=== PATIENT | female | born 1995 | race Caucasian/White ===

== ENCOUNTER 2016-12-04 13:50 | Emergency (ER) | payer BC ==
[2016-12-04 14:48] VITALS: BP 110/67
--- NOTE | 2016-12-04 14:57 | UC ---
Respiratory Complaint HPI - History of Current Complaint Chief Complaint: UCGeneralIllness Stated Complaint: RESPIRATORY COMPLAINT Time Seen by Provider: 12/04/16 14:49 Hx Obtained From: Patient Hx Last Menstrual Period: None with BC ?: No Onset/Duration: Sudden Onset, Lasting Days - 2, Worse Since - today Timing: Constant Severity Initially: Mild Severity Currently: Moderate Character: Cough: Productive - green sputum Aggravating Factors: Deep Breaths Alleviating Factors: Bronchodilator Associated Signs And Symptoms: Positive: Fever, Chills, Wheezing, URI, Nasal Congestion Related History: Seasonal Allergies - Risk Factors Pulmonary Embolism Risk Factors: Oral Contraceptives Cardiac Risk Factors: Negative Pseudomonas Risk Factors: Negative Tuberculosis Risk Factors: Negative - Allergies/Home Medications Allergies/Adverse Reactions: Allergies Allergy/AdvReac Type Severity Reaction Status Date / Time No Known Allergies Allergy Verified 12/04/16 14:35 Home Medications: Home Medications Albuterol 2.5MG/3ML (0.083%)* [Ventolin 2.5 MG/3 ML NEB.VALERIA*] 3 ml NEB PRN 12/04 [History] Fluticasone-Salmeterol 100-50* [Advair Diskus 100-50*] 2 puff INH DAILY [History Confirmed 12/04/16] Montelukast Sodium TAB* [Singulair 5 mg TAB*] 1 tab PO DAILY 12/04/16 [History Confirmed 12/04/16] PMH/Surg Hx/FS Hx/Imm Hx Endocrine History Of: Denies: Diabetes, Thyroid Disease, Hyperthyroidism, Hypothyroidism, Dyslipidemia Cardiovascular History Of: Denies: Cardiac Disorders, Hypertension, Pacemaker/ICD, Myocardial Infarction , Congestive Heart Failure, Atrial Fibrillation, Deep Vein Thrombosis, Bleeding Disorders Respiratory History Of: Reports: Asthma Denies: COPD, Bronchitis, Pneumonia, Pulmonary Embolism GI/ History Of: Denies: Gastroesophageal Reflux, Ulcer, Gastrointestinal Bleed, Gall Bladder Disease, Kidney Stones, Diverticulitis, Renal Disease, Urosepsis Neurological History Of: Denies: TIA, CVA, Dementia, Seizures, Migraine Psychological History Of: Denies: Anxiety, Depression, Bipolar Disorder, Schizophrenia, Post Traumatic Stress Disorder Cancer History Of: Denies: Lung Cancer, Colorectal Cancer, Breast Cancer, Prostate Cancer, Cervical Cancer Other History Of: Negative For: HIV, Hepatitis B, Hepatitis C, Anticoagulant Therapy - Surgical History Surgical History: Yes Surgery Procedure, Year, and Place: HIP SX TIMES TWO- BOTH HIPS - Family History Known Family History: Positive: Cardiac Disease, Hypertension - Social History Occupation: Student Lives: Alone Alcohol Use: None Substance Use Type: None Smoking Status (MU): Never Smoked Tobacco - Immunization History Most Recent Influenza Vaccination: 04/2016 Review of Systems Constitutional: Chills ENT: Sore Throat, Nasal Discharge Respiratory: Cough Gastrointestinal: Vomiting - none since last monday All Other Systems Reviewed And Are Negative: Yes Physical Exam Triage Information Reviewed: Yes Appearance: No Pain Distress, Well-Nourished, Ill-Appearing Vital Signs: Initial Vital Signs Temp 99.8 F 12/04/16 14:40 Pulse 100 12/04/16 14:40 Resp 18 12/04/16 14:40 BP 110/67 12/04/16 14:40 Pulse Ox 97 12/04/16 14:40 Vital Signs Reviewed: Yes Eyes: Positive: Conjunctiva Clear ENT: Positive: Pharynx normal, TMs normal Neck exam: Normal Respiratory: Positive: Wheezing - expiratory with coughing Cardiovascular Exam: Normal Musculoskeletal Exam: Normal Neurological Exam: Normal Psychological Exam: Normal Skin Exam: Normal UC Diagnostic Evaluation - Laboratory O2 Sat by Pulse Oximetry: 97 Respiratory Course/Dx - Differential Dx/Diagnosis Differential Diagnosis/HQI/PQRI: Asthma, Lower Resp Infection, Sinusitis Provider Diagnoses: Acute URI. Acute bronchospasm Discharge - Discharge Plan Condition: Stable Disposition: HOME Prescriptions: predniSONE TAB* [Deltasone TAB*] 20 mg PO DAILY #18 tab Patient Education Materials: Upper Respiratory Infection (ED), Bronchospasm (ED ), Prednisone (By mouth) Additional Instructions: NASAL SPRAYS AND DROPS: Afrin in the PUMP/ MIST bottle. Tilt your head down and look at the floor while doing a strong sniff with the spray. Decongestant nasal sprays and drops often give dramatic relief from congestion. They are often recommended for patients with sinus infection to assist with sinus drainage. Persons with high blood pressure should consult the doctor before using these nasal sprays. Afrin and Michael-Synephrine are common [id number] preparations. They should not be used for more than five days, as "rebound" congestion can occur - - the congestion flares as the drug wears off. A way of dealing with this rebound congestion problem is to medicate only one nostril each time, allowing the other nostril to recover from the medicine' s effects. When you no longer need the drug during the day, spray only one nostril each night. This helps you sleep well without severe rebound congestion. Call the doctor if you develop severe headache, palpitations, or chest pain.
== END 2016-12-04 15:19 | disposition home or self-care (01) ==
LOC: UCCORT 13:50
DX: J06.9 Acute upper respiratory infection, unspecified (principal); J98.01 Acute bronchospasm
CPT/HCPCS: 99212; G0463

== ENCOUNTER 2017-10-13 11:30 | Emergency (ER) | payer BC | END 2017-10-13 13:21 | disposition left against medical advice (07) | LOC: UCCORT 11:30 | DX: J00 Acute nasopharyngitis [common cold] (principal); Z53.21 Procedure and treatment not carried out due to patient leaving prior to being seen by health care provider ==

== ENCOUNTER 2017-10-13 19:11 | Emergency (ER) | payer BC ==
[2017-10-13 19:27] VITALS: BP 128/77
--- NOTE | 2017-10-13 19:58 | UC ---
Throat Pain/Nasal Fred HPI - HPI Summary HPI Summary: P tc/o sore throat ~ 1 week ago. Pt c/o of sore throat when she swallows. Had fever 1 week ago but has resolved. - History of Current Complaint Chief Complaint: UCRespiratory Stated Complaint: SORE THROAT, COLD SYM Time Seen by Provider: 10/13/17 19:20 Hx Obtained From: Patient Hx Last Menstrual Period: 6 yrs ?: No Onset/Duration: Sudden Onset, Lasting Days, Still Present Severity: Mild Associated Signs & Symptoms: Positive: Dysphagia - Allergies/Home Medications Allergies/Adverse Reactions: Allergies Allergy/AdvReac Type Severity Reaction Status Date / Time No Known Allergies Allergy Verified 10/13/17 19:27 PMH/Surg Hx/FS Hx/Imm Hx Previously Healthy: Yes Other History Of: Negative For: HIV, Hepatitis B, Hepatitis C, Anticoagulant Therapy - Surgical History Surgical History: Yes Surgery Procedure, Year, and Place: HIP SX B/L HIPS - Family History Known Family History: Positive: Cardiac Disease, Hypertension - Social History Occupation: Student Lives: Dormitory/Roommates Alcohol Use: Rare Substance Use Type: None Smoking Status (MU): Never Smoked Tobacco Have You Smoked in the Last Year: No - Immunization History Most Recent Influenza Vaccination: 04/2016 Review of Systems Constitutional: Fever, Fatigue Skin: Negative Eyes: Negative ENT: Sore Throat Respiratory: Cough Cardiovascular: Negative Gastrointestinal: Negative Genitourinary: Negative Motor: Negative Neurovascular: Negative Musculoskeletal: Myalgia Neurological: Headache Psychological: Negative Is Patient Immunocompromised?: No All Other Systems Reviewed And Are Negative: Yes Physical Exam Triage Information Reviewed: Yes Appearance: Ill-Appearing Vital Signs: Initial Vital Signs Temp 97.9 F 10/13/17 19:21 Pulse 83 10/13/17 19:21 Resp 18 10/13/17 19:21 BP 128/77 10/13/17 19:21 Pulse Ox 99 10/13/17 19:21 Vital Signs Reviewed: Yes Eye Exam: Normal ENT Exam: Other ENT: Positive: Pharyngeal erythema Dental Exam: Normal Neck exam: Normal Respiratory Exam: Normal Cardiovascular Exam: Normal Musculoskeletal Exam: Normal Neurological Exam: Normal Psychological Exam: Normal Skin Exam: Normal Throat Pain/Nasal Course/Dx - Differential Dx/Diagnosis Differential Diagnosis/HQI/PQRI: Pharyngitis, Tonsillitis, URI Provider Diagnoses: Strep throat. positive rapid strep Discharge - Discharge Plan Condition: Stable Disposition: HOME Prescriptions: Penicillin VK 500 MG TAB(NF) [Penicillin VK 500 mg Tab] 500 mg PO Q8H #30 tab Patient Education Materials: Strep Throat (DC) Referrals: Non Staff,Doctor [Primary Care Provider] - If Needed
== END 2017-10-13 19:55 | disposition home or self-care (01) ==
LOC: UCCORT 19:11
DX: J02.0 Streptococcal pharyngitis (principal)
CPT/HCPCS: 87651; 99212; G0463

== ENCOUNTER 2017-10-24 12:49 | Emergency (ER) | payer BC ==
[2017-10-24 14:48] VITALS: BP 111/49
[2017-10-24] MEDS ORDERED: Ondansetron ODT TAB* 4 MG PO ONE (15:02)
--- NOTE | 2017-10-24 15:12 | UC ---
Respiratory Complaint HPI - HPI Summary HPI Summary: 22 yo female wtih abrupt onset of fever/chills/cough/runny nose and myalgias recently rxed for strep no sore throat some n/v no UTI symptoms - History of Current Complaint Chief Complaint: UCRespiratory Stated Complaint: NAUSEA FEVER BODYACHES CONGESTION Time Seen by Provider: 10/24/17 14:55 Hx Obtained From: Patient Hx Last Menstrual Period: 6 yrs Onset/Duration: Sudden Onset, Lasting Hours Timing: Constant Severity Initially: Moderate Severity Currently: Moderate Pain Intensity: 7 Pain Scale Used: 0-10 Numeric Character: Cough: Nonproductive Aggravating Factors: Nothing Alleviating Factors: Nothing Associated Signs And Symptoms: Positive: Fever, Chills, Nasal Congestion - Allergies/Home Medications Allergies/Adverse Reactions: Allergies Allergy/AdvReac Type Severity Reaction Status Date / Time No Known Allergies Allergy Verified 10/24/17 14:43 PMH/Surg Hx/FS Hx/Imm Hx Previously Healthy: Yes Respiratory History: Asthma Other History Of: Negative For: HIV, Hepatitis B, Hepatitis C, Anticoagulant Therapy - Surgical History Surgical History: Yes Surgery Procedure, Year, and Place: HIP SX B/L HIPS - Family History Known Family History: Positive: Cardiac Disease, Hypertension - Social History Alcohol Use: Rare Substance Use Type: None Smoking Status (MU): Never Smoked Tobacco Have You Smoked in the Last Year: No - Immunization History Most Recent Influenza Vaccination: 04/2016 Review of Systems Constitutional: Fever, Chills, Fatigue Skin: Negative Eyes: Negative ENT: Nasal Discharge Respiratory: Cough Cardiovascular: Negative Gastrointestinal: Negative Genitourinary: Negative Motor: Negative Neurovascular: Negative Musculoskeletal: Myalgia Neurological: Headache Psychological: Negative Is Patient Immunocompromised?: No All Other Systems Reviewed And Are Negative: Yes Physical Exam Triage Information Reviewed: Yes Appearance: Well-Appearing, No Pain Distress, Well-Nourished Vital Signs: Initial Vital Signs Temp 99.3 F 10/24/17 14:44 Pulse 83 10/24/17 14:44 Resp 16 10/24/17 14:44 BP 111/49 10/24/17 14:44 Pulse Ox 100 10/24/17 14:44 Eyes: Positive: Conjunctiva Clear ENT: Positive: Pharynx normal, Nasal congestion, Nasal drainage, Uvula midline. Negative: Pharyngeal erythema, Tonsillar swelling, Tonsillar exudate Dental Exam: Normal Neck: Positive: Supple, Nontender, No Lymphadenopathy Respiratory: Positive: Lungs clear, Normal breath sounds, No respiratory distress, No accessory muscle use Cardiovascular: Positive: RRR, No Murmur Musculoskeletal: Positive: ROM Intact, No Edema Neurological: Positive: Alert Psychological Exam: Normal Skin Exam: Normal UC Diagnostic Evaluation - Laboratory O2 Sat by Pulse Oximetry: 100 Respiratory Course/Dx - Course Course Of Treatment: [facility] out of flu tests due to nationwide shortage - Differential Dx/Diagnosis Provider Diagnoses: influenza Discharge - Discharge Plan Condition: Stable Disposition: HOME Prescriptions: Ondansetron TAB* [Zofran Tab*] 4 mg PO Q6H PRN #10 tab PRN Reason: Nausea Oseltamivir CAP* [Tamiflu CAP*] 75 mg PO BID #10 cap Patient Education Materials: Influenza (ED) Forms: *School Release Referrals: Non Staff,Doctor [Primary Care Provider] - Additional Instructions: recheck in 4-7 days if not better rest fluids tylenol or advil
== END 2017-10-24 15:12 | disposition home or self-care (01) ==
LOC: UCCORT 12:49
DX: J11.1 Influenza due to unidentified influenza virus with other respiratory manifestations (principal); J45.909 Unspecified asthma, uncomplicated
CPT/HCPCS: 99212; A9270-GY; G0463

== ENCOUNTER 2019-04-01 10:52 | Emergency (ER) | payer BC ==
[2019-04-01 12:12] VITALS: BP 106/71
--- NOTE | 2019-04-01 12:22 | UC ---
UC General HPI - HPI Summary HPI Summary: PT HAD A SORE THROAT X 2 DAYS THAT RESOLVED BUT NOW HAS A COUGH AND WHEEZING X 2 DAYS. NO FEVER OR CP. + HX ASTHMA. USING HER INHALER BUT NOT ENOUGH RELIEF AT NIGHT. - History of Current Complaint Chief Complaint: UCRespiratory Stated Complaint: ST,COUGH,CONGESTION Time Seen by Provider: 04/01/19 12:05 Hx Obtained From: Patient Hx Last Menstrual Period: 3 mos. Onset/Duration: Gradual Onset Timing: Constant Pain Intensity: 4 Associated Signs & Symptoms: Positive: Cough, SOB. Negative: Chest Pain, Fever - Allergy/Home Medications Allergies/Adverse Reactions: Allergies Allergy/AdvReac Type Severity Reaction Status Date / Time No Known Allergies Allergy Verified 04/01/19 12:12 Home Medications: Home Medications guaiFENesin [Mucinex] 1 tab PO TID PRN 04/01/19 [History Confirmed 04/01/19] PMH/Surg Hx/FS Hx/Imm Hx Respiratory History: Asthma Other History Of: Negative For: HIV, Hepatitis B, Hepatitis C, Anticoagulant Therapy - Surgical History Surgical History: Yes Surgery Procedure, Year, and Place: hip arthroscopy bilaterally for labral tears - Family History Known Family History: Positive: Cardiac Disease, Hypertension - Social History Alcohol Use: Rare Substance Use Type: None Smoking Status (MU): Never Smoked Tobacco Have You Smoked in the Last Year: No - Immunization History Most Recent Influenza Vaccination: 04/2016 Review of Systems All Other Systems Reviewed And Are Negative: Yes Constitutional: Negative: Fever, Chills Respiratory: Positive: Shortness Of Breath, Cough Cardiovascular: Negative: Palpitations, Chest Pain Physical Exam Triage Information Reviewed: Yes Appearance: Well-Appearing Vital Signs: Initial Vital Signs Temp 98.5 F 04/01/19 12:04 Pulse 74 04/01/19 12:04 Resp 18 04/01/19 12:04 BP 106/71 04/01/19 12:04 Pulse Ox 100 04/01/19 12:04 Vital Signs Reviewed: Yes Eyes: Positive: Conjunctiva Clear ENT: Positive: Pharynx normal, TMs normal. Negative: Nasal congestion, Nasal drainage Neck: Positive: Supple, Nontender, No Lymphadenopathy Respiratory: Positive: No respiratory distress, Decreased breath sounds. Negative: Crackles, Rhonchi Cardiovascular: Positive: RRR, No Murmur Abdomen Description: Positive: Nontender Musculoskeletal: Positive: ROM Intact Neurological: Positive: Alert Psychological: Positive: Age Appropriate Behavior Skin Exam: Normal Course/Dx - Differential Dx - Multi-Symptom Differential Diagnoses: Other - NO CONCERN FOR PNEUMONIA. - Diagnoses Provider Diagnosis: Asthma Discharge - Sign-Out/Discharge Documenting (check all that apply): Patient Departure All imaging exams completed and their final reports reviewed: No Studies - Discharge Plan Condition: Stable Disposition: HOME Prescriptions: predniSONE [Prednisone 20 MG TAB] 40 mg PO DAILY 5 Days #10 tablet Patient Education Materials: Asthma (ED) Referrals: Osiel Myles MD [Medical Doctor] - 7 Days Additional Instructions: USE THE ALBUTEROL INHALER 2 PUFFS EVERY 6 HOURS - Billing Disposition and Condition Condition: STABLE Disposition: Home - Attestation Statements Provider Attestation: I was available for consult. This patient was seen by the HANH. The patient was not presented to, seen by, or examined by me. -Sangeetha
== END 2019-04-01 12:35 | disposition home or self-care (01) ==
LOC: UCCORT 10:52
DX: J45.909 Unspecified asthma, uncomplicated (principal)
CPT/HCPCS: 99212; G0463

== ENCOUNTER 2019-06-25 12:35 | Emergency (ER) | payer BC ==
[2019-06-25 13:50] VITALS: BP 118/68
[2019-06-25] MEDS ORDERED: Fluorescein Sodium TOPICAL* 1 MG TEST STRIP OPHTHALMIC ONE (13:54)
[2019-06-25] MEDS ORDERED: Tetracaine 0.5% OPTH.SOL 4 ML* 1 DROP BTL RIGHT EYE SCH (14:00)
--- NOTE | 2019-06-25 14:09 | UC ---
Eye Complaint HPI - HPI Summary HPI Summary: RIGHT EYE DISCOMFORT / IRRITATION X 7 DAYS FOREIGN BODY SENSATION NO EYE PAIN , NO CHANGE IN VISION, NO EYE REDNESS, NO DISCHARGE - History of Current Complaint Chief Complaint: UCEye Stated Complaint: EYE COMPLAINT Time Seen by Provider: 06/25/19 13:53 Hx Obtained From: Patient Hx Last Menstrual Period: 3 mos. ?: No Onset/Duration: Gradual Onset, Lasting Days - 7, Still Present Timing: Constant Severity Initially: Moderate Severity Currently: Moderate Pain Intensity: 0 Location of Injury: Other - NO INURY Character: Foreign Body Sensation - RIGHT EYE Aggravating Factor(s): Nothing Alleviating Factor(s): Nothing Associated Signs And Symptoms: Negative: Photophobia, Drainage (Clear), Drainage (Purulent), Vision Impairment Bilateral, Vision Impairment Right, Vision Impairment Left, Fever, Swelling - Allergies/Home Medications Allergies/Adverse Reactions: Allergies Allergy/AdvReac Type Severity Reaction Status Date / Time No Known Allergies Allergy Verified 06/25/19 13:50 Home Medications: Home Medications Cetirizine* [ZyrTEC 10 MG TAB*] 10 mg PO DAILY 06/25/19 [History Confirmed 06/25] PMH/Surg Hx/FS Hx/Imm Hx Previously Healthy: Yes Other History Of: Negative For: HIV, Hepatitis B, Hepatitis C, Anticoagulant Therapy - Surgical History Surgical History: Yes Surgery Procedure, Year, and Place: hip arthroscopy bilaterally for labral tears - Family History Known Family History: Positive: Cardiac Disease, Hypertension - Social History Alcohol Use: Rare Substance Use Type: None Smoking Status (MU): Never Smoked Tobacco Have You Smoked in the Last Year: No - Immunization History Most Recent Influenza Vaccination: 04/2016 Review of Systems All Other Systems Reviewed And Are Negative: Yes Constitutional: Positive: Negative Skin: Positive: Negative Eyes: Negative: Blurred Vision, Diplopia, Drainage, Eye Redness, Photophobia ENT: Positive: Negative Respiratory: Positive: Negative Is Patient Immunocompromised?: No Physical Exam Triage Information Reviewed: Yes Appearance: Well-Appearing, No Pain Distress, Well-Nourished Vital Signs: Initial Vital Signs Temp 98.2 F 06/25/19 13:47 Pulse 64 06/25/19 13:47 Resp 20 06/25/19 13:47 BP 118/68 06/25/19 13:47 Pulse Ox 100 06/25/19 13:47 Vital Signs Reviewed: Yes Eye Exam: Normal Eyes: Positive: Conjunctiva Clear. Negative: Conjunctiva Inflamed, Discharge ENT: Positive: Normal ENT inspection, Hearing grossly normal, Pharynx normal Neck: Positive: Supple, Nontender, No Lymphadenopathy Respiratory: Positive: Chest non-tender, Lungs clear, Normal breath sounds Cardiovascular: Positive: RRR, No Murmur, Pulses Normal UC Physical Exam Vital Signs On Initial Exam: Initial Vitals Temp Pulse Resp BP Pulse Ox 98.2 F 64 20 118/68 100 06/25/19 13:47 06/25/19 13:47 06/25/19 13:47 06/25/19 13:47 06/25/19 13:47 - Eye Exam EOMI: Yes Eye Exam: bilateral eye: PERRL, no evidence of infection or trauma Eye Complaint Course/Dx - Differential Dx/Diagnosis Provider Diagnosis: Eye irritation Discharge ED - Sign-Out/Discharge Documenting (check all that apply): Patient Departure All imaging exams completed and their final reports reviewed: No Studies - Discharge Plan Condition: Stable Disposition: HOME Referrals: No Primary Care Phys,NOPCP [Primary Care Provider] - If Needed Additional Instructions: RIGHT EYE IRRITATION , NO SIGNS OR SYMPTOMS OF EYE INFECTION , NO FOREIGN BODY , NO CORNEAL ABRASION NOTED PLEASE FOLLOW UP IF HAVING EYE PAIN , CHANGE IN VISION , OR IF NOT BETTER IN ONE WEEK - Billing Disposition and Condition Condition: STABLE Disposition: Home
[2019-06-25] MEDS ORDERED: Tetracaine 0.5% OPTH.SOL 4 ML* 1 DROP BTL RIGHT EYE ONE (14:10)
== END 2019-06-25 14:16 | disposition home or self-care (01) ==
LOC: UCCORT 12:35
DX: H57.89 Other specified disorders of eye and adnexa (principal)
CPT/HCPCS: 99211; A9270-GY; G0463

== ENCOUNTER → 2019-07-12 20:55 | Emergency (ER) | payer SELFPAY | END | disposition home or self-care (01) | LOC: OHCORT 20:55 | DX: Z00.00 Encounter for general adult medical examination without abnormal findings (principal) ==

== ENCOUNTER 2019-07-12 20:57 | Emergency (ER) | payer BC ==
[2019-07-12 21:17] VITALS: BP 111/73
--- NOTE | 2019-07-12 21:33 | UC ---
Complaint Female HPI - HPI Summary HPI Summary: Here 06/25/19 with seven days of right eye irritation, diagnosed with eye irritation, and told to follow-up in one week if not better. One day ago, an farmer vegetable and Dr. Pierre thought she had chlamydia and gave her a single dose of azithromycin and steroid eye drops. Patient asked her boyfriend to get tested yesterday and was told today that he does not have chlamydia. Patient would like to be tested for chlamydia. Increased vaginal odor for two months. - History Of Current Complaint Chief Complaint: UCGU Stated Complaint: PERSONAL Hx Obtained From: Patient Hx Last Menstrual Period: ~07/01/19 ?: No Onset/Duration: Sudden Onset, Lasting Weeks Timing: Constant Severity Initially: Mild Severity Currently: Mild Pain Intensity: 0 Character: Burning Aggravating Factor(s): [place], Urination - Allergies/Home Medications Allergies/Adverse Reactions: Allergies Allergy/AdvReac Type Severity Reaction Status Date / Time No Known Allergies Allergy Verified 07/12/19 21:12 Home Medications: Home Medications Azithromycin mg PO ONCE 07/12/19 [History] Tobramycin/Dexameth OPTH.SUSP* [Tobradex 0.3-0.1%*] 1 drop BOTH EYES QID [History Confirmed 07/12/19] PMH/Surg Hx/FS Hx/Imm Hx Previously Healthy: Yes Other History Of: Negative For: HIV, Hepatitis B, Hepatitis C, Anticoagulant Therapy - Surgical History Surgical History: Yes Surgery Procedure, Year, and Place: hip arthroscopy bilaterally for labral tears - Family History Known Family History: Positive: Cardiac Disease, Hypertension - Social History Alcohol Use: Rare Substance Use Type: None Smoking Status (MU): Never Smoked Tobacco Have You Smoked in the Last Year: No - Immunization History Most Recent Influenza Vaccination: 04/2016 Review of Systems All Other Systems Reviewed And Are Negative: Yes Eyes: Positive: Eye Redness Genitourinary: Positive: Vaginal/Penile Burning, Vaginal/Penile Discharge Is Patient Immunocompromised?: No Physical Exam Triage Information Reviewed: Yes Appearance: Well-Appearing, Well-Nourished, Pain Distress Vital Signs: Initial Vital Signs Temp 98.1 F 07/12/19 21:07 Pulse 68 07/12/19 21:07 Resp 16 07/12/19 21:07 BP 111/73 07/12/19 21:07 Pulse Ox 100 07/12/19 21:07 Vital Signs Reviewed: Yes Eye Exam: Normal ENT Exam: Normal Dental Exam: Normal Neck exam: Normal Respiratory Exam: Normal Respiratory: Positive: Chest non-tender, Lungs clear, Normal breath sounds Cardiovascular Exam: Normal Cardiovascular: Positive: RRR, No Murmur, Pulses Normal Abdominal Exam: Normal Abdomen Description: Positive: Nontender, No Organomegaly, Soft Bowel Sounds: Positive: Present Pelvic Exam: Positive: No Cerv. Motion Tender, No Masses, Active Bleeding, Discharge - white and thick Musculoskeletal Exam: Normal Neurological Exam: Normal Psychological Exam: Normal Skin Exam: Normal Complaint Female Dx - Course Course Of Treatment: hx obtained, exam performed ,meds reviewed, pelvic exam performed. treated for yeast, swabs obtained. - Differential Dx/Diagnosis Differential Diagnosis/HQI/PQRI: Sexually Transmitted Disease, Urinary Tract Infection Provider Diagnosis: Vaginitis, Screening for STD (sexually transmitted disease) Discharge ED - Sign-Out/Discharge Documenting (check all that apply): Patient Departure All imaging exams completed and their final reports reviewed: No Studies - Discharge Plan Condition: Stable Disposition: HOME Prescriptions: Fluconazole [Diflucan 150 MG (NF)] 150 mg PO ONCE #1 tab Patient Education Materials: Vaginitis (ED) Referrals: No Primary Care Phys,NOPCP [Primary Care Provider] - Additional Instructions: 1. take the diflucan for your symptoms 2. Continue with the eye drops as prescribed by the eye doctor 3. You have been treated for chlamydia already, your tests will be available in the next 3 days - Billing Disposition and Condition Condition: STABLE Disposition: Home
--- NOTE | 2019-07-15 07:17 | UC ---
- Progress Note Progress Note: Vaginal DNA results come back from July 12, 2019 is positive for Gardnerella negative for Julia. Patient had been treated with Diflucan for julia. Prescription to call patient inform the patient results and that I have called in a prescription for Flagyl 500 mg by mouth twice a day for 7 days. Course/Dx - Diagnoses Provider Diagnoses: Vaginitis, Screening for STD (sexually transmitted disease) Discharge ED - Sign-Out/Discharge Documenting (check all that apply): Patient Departure All imaging exams completed and their final reports reviewed: No Studies - Discharge Plan Condition: Stable Disposition: HOME Prescriptions: Fluconazole [Diflucan 150 MG (NF)] 150 mg PO ONCE #1 tab metroNIDAZOLE [Flagyl] 500 mg PO BID #14 tablet Patient Education Materials: Vaginitis (ED) Referrals: No Primary Care Phys,NOPCP [Primary Care Provider] - Additional Instructions: 1. take the diflucan for your symptoms 2. Continue with the eye drops as prescribed by the eye doctor 3. You have been treated for chlamydia already, your tests will be available in the next 3 days - Billing Disposition and Condition Condition: STABLE Disposition: Home
[2019-07-15 13:39] LABS: Chlamydia trachomatis NAA Negative (Negative); Neisseria gonorrhoeae (GC) NAA Negative (Negative)
== END 2019-07-12 21:49 | disposition home or self-care (01) ==
LOC: UCCORT 20:57
DX: Z11.3 Encounter for screening for infections with a predominantly sexual mode of transmission (principal); N76.0 Acute vaginitis; H57.89 Other specified disorders of eye and adnexa
CPT/HCPCS: 87480; 87491; 87510; 87591; 87661; 99212; G0463